=== PATIENT | male | born 1970 | race Two or more races ===

== ENCOUNTER 2016-10-16 09:25 | Inpatient (IN) | payer BC ==
[~2016-10-16] VITALS: Ht 188 cm; Wt 169.7 kg
[2016-10-16 10:30] LABS: Basophils # (auto) 0.1 uL; Basophils % (auto) 0.6 % (0.0-2.0); Eosinophils # (auto) 0 uL; Eosinophils % (auto) 0.2 % (0.0-7.0); Hematocrit 49.5 % (41.0-53.0); Hemoglobin 16.7 g/dL (13.5-17.5); Lymphocytes # (auto) 1.4 uL; Lymphocytes % (auto) 14.5 % (10.0-50.0); Mean Corpuscular Hemoglobin 29.6 pg (28.0-32.0); Mean Corpuscular Hgb Conc. 33.7 g/dL (32.0-36.0); Mean Corpuscular Volume 87.8 fL (80.0-100.0); Monocytes # (auto) 0.5 uL; Monocytes % (auto) 4.9 % (0.0-12.0); Neutrophils # (auto) 7.8 uL; Neutrophils % (auto) 79.8 % (37.0-80.0); Platelet Count (auto) 258 10^3/uL (140-450); Red Cell Distribution Width 14.6 % (11.6-16.0); White Blood Cell 9.8 10^3/uL (4.4-10.8)
[2016-10-16 11:00] LABS: Albumin 3.7 g/dL (3.4-5.0); Alkaline Phosphatase 112 U/L (45-117); Anion Gap 8 (5-15); Aspartate Aminotransferase 40 U/L (15-37); BUN/Creatinine Ratio 12.5; Bilirubin, Total 0.8 mg/dL (0.2-1.0); Blood Urea Nitrogen 12 mg/dL (7-18); Calcium 9.1 mg/dL (8.5-10.1); Carbon Dioxide 25 mmol/L (21-32); Chloride 104 mmol/L (98-107); GFR African American 108 mL/min; GFR Non-African American 89 mL/min; Glucose 153 mg/dL (74-106); Magnesium 2.3 mg/dL (1.6-2.6); Potassium 4.1 mmol/L (3.5-5.1); Sodium 137 mmol/L (136-145); Total Protein 8.1 g/dL (6.4-8.2)
[2016-10-16] MEDS ORDERED: DEXTROSE (50%) 50ML SYRG IV PRN (16:45)
[2016-10-16] MEDS ORDERED: MORPHINE SULF INJ 2 MG/ML SYRINGE 1ML IV PRN ×2 (16:45)
[2016-10-16] MEDS ORDERED: TEMAZEPAM 15 MG CAP PO PRN (16:45)
[2016-10-16] MEDS ORDERED: LORazepam 0.5 MG TAB PO PRN (16:45)
[2016-10-16] MEDS ORDERED: PROMETHAZINE HCL 25 MG/ML 1ML IV PRN (16:45)
[2016-10-16] MEDS ORDERED: HYDROcodone-ACET 5/325MG TAB PO PRN (16:45)
[2016-10-16] MEDS ORDERED: ACETAMINOPHEN 500 MG TAB PO PRN (16:45)
[2016-10-16] MEDS ORDERED: NITROGLYCERIN 0.4 MG SL TAB SL PRN (16:45)
[2016-10-16] MEDS: ASPirin 81 mg TAB PO SCH (17:23)
[2016-10-16] MEDS: CARVEDILOL 3.125 MG TAB PO SCH ×2 (17:23→22:30)
[2016-10-16] MEDS: ACCU-CHEK COMFORT CURVE STRIP VI SCH ×2 (17:29→22:26)
[2016-10-16] MEDS: InsuLIN REG 1unit/0.01ml Soln (100units/ml) SC SCH ×2 (17:30→22:30)
[2016-10-16 19:50] VITALS: BP 132/79
[2016-10-16 22:00] VITALS: BP 132/79
[2016-10-16] MEDS: SODIUM CHLOR 0.9% PF (SALINE LOCK) 10ML VIAL IV SCH (22:26)
[2016-10-17] MEDS ORDERED: BENA20TA14 PO (02:57)
[2016-10-17] MEDS ORDERED: METF-370 PO (02:57)
[2016-10-17] MEDS ORDERED: PANT40TA2 PO (02:57)
[2016-10-17] MEDS ORDERED: SERT-274 PO (02:57)
[2016-10-17] MEDS ORDERED: ASPI81CH43 GT (02:57)
[2016-10-17 05:00] VITALS: BP 135/78
[2016-10-17] MEDS: ACCU-CHEK COMFORT CURVE STRIP VI SCH ×4 (06:23→21:33)
[2016-10-17] MEDS: InsuLIN REG 1unit/0.01ml Soln (100units/ml) SC SCH ×4 (06:23→21:40)
[2016-10-17] MEDS: SODIUM CHLOR 0.9% PF (SALINE LOCK) 10ML VIAL IV SCH ×3 (06:23→21:33)
[2016-10-17 06:27] LABS: Hepatitis B Surface Antibody Negative
[2016-10-17 06:29] LABS: B-Type Natriuretic Peptide 4.19 pg/mL (0-100)
[2016-10-17 06:34] LABS: Albumin 3.4 g/dL (3.4-5.0); BUN/Creatinine Ratio 14.9; Bilirubin, Total 0.8 mg/dL (0.2-1.0); Calcium 8.6 mg/dL (8.5-10.1); Potassium 4.2 mmol/L (3.5-5.1); Total Protein 7.4 g/dL (6.4-8.2)
[2016-10-17 06:38] LABS: Temperature: 23.3 C (20.0-25.0)
[2016-10-17 07:30] VITALS: BP 131/75
[2016-10-17 09:00] VITALS: BP 131/75
[2016-10-17] MEDS ORDERED: ENOXAPARIN SOD 40 MG/0.4 ML SYRINGE SC SCH (10:00)
[2016-10-17] MEDS: ENALAPRIL MALEATE 2.5 MG TAB PO SCH (10:05)
[2016-10-17] MEDS: PANTOPRAZOLE 40 MG TAB PO SCH (10:06)
[2016-10-17] MEDS: CARVEDILOL 3.125 MG TAB PO SCH ×2 (10:06→21:33)
[2016-10-17] MEDS: POTASSIUM CHL 20 Meq TABLET PO SCH (10:06)
[2016-10-17] MEDS: ASPirin 81 mg TAB PO SCH (10:06)
[2016-10-17] MEDS: ISOSORBIDE MONONITRATE 60 MG TAB PO SCH (10:07)
[2016-10-17] MEDS: FUROSEMIDE 40 MG/4 ML VIAL IV SCH (10:07)
[2016-10-17 13:00] VITALS: BP 125/78
[2016-10-17 17:00] VITALS: BP 130/71
[2016-10-17 22:00] VITALS: BP 135/64
[2016-10-17] MEDS ORDERED: ATORVASTATIN 20 MG TAB PO SCH (22:00)
[2016-10-18 05:00] VITALS: BP 128/79
[2016-10-18] MEDS: SODIUM CHLOR 0.9% PF (SALINE LOCK) 10ML VIAL IV SCH (05:17)
[2016-10-18] MEDS: ACCU-CHEK COMFORT CURVE STRIP VI SCH ×2 (05:17→11:30)
[2016-10-18] MEDS: InsuLIN REG 1unit/0.01ml Soln (100units/ml) SC SCH ×2 (05:18→11:30)
[2016-10-18 07:30] VITALS: BP 121/76
[2016-10-18 08:13] LABS: Albumin 3.7 g/dL (3.4-5.0); BUN/Creatinine Ratio 14.6; Potassium 4.1 mmol/L (3.5-5.1); Total Protein 7.8 g/dL (6.4-8.2)
[2016-10-18 09:07] VITALS: BP 121/76
[2016-10-18] MEDS: FUROSEMIDE 40 MG/4 ML VIAL IV SCH (09:42)
[2016-10-18] MEDS: ASPirin 81 mg TAB PO SCH (09:43)
[2016-10-18] MEDS: PANTOPRAZOLE 40 MG TAB PO SCH (09:43)
[2016-10-18] MEDS: POTASSIUM CHL 20 Meq TABLET PO SCH (09:43)
[2016-10-18] MEDS: ENALAPRIL MALEATE 2.5 MG TAB PO SCH (09:43)
[2016-10-18] MEDS: CARVEDILOL 3.125 MG TAB PO SCH (09:43)
[2016-10-18] MEDS: ISOSORBIDE MONONITRATE 60 MG TAB PO SCH (09:44)
[2016-10-18 10:58] VITALS: BP 121/76
== END 2016-10-18 12:10 | disposition home or self-care (01) | DRG 292 ==
LOC: ER 09:35 → TELE 09:36 → TELE-CENTR 20:30
PROVIDERS: ADMIT Internal Medicine; ATTEND Internal Medicine
DX: I11.0 Hypertensive heart disease with heart failure (principal); Z68.42 Body mass index [BMI] 45.0-49.9, adult; I50.33 Acute on chronic diastolic (congestive) heart failure; I20.0 Unstable angina; E66.01 Morbid (severe) obesity due to excess calories; K76.0 Fatty (change of) liver, not elsewhere classified; K21.9 Gastro-esophageal reflux disease without esophagitis; I15.2 Hypertension secondary to endocrine disorders; E11.9 Type 2 diabetes mellitus without complications; Z83.3 Family history of diabetes mellitus; Z82.49 Family history of ischemic heart disease and other diseases of the circulatory system; Z90.49 Acquired absence of other specified parts of digestive tract; Z91.013 Allergy to seafood; Z71.89 Other specified counseling
CPT/HCPCS: 36415; 71020; 76705; 80053; 80061; 80307; 82550; 82962; 83036; 83735; 83880; 84443; 84484; 85025; 85379; 85652; 86141; 86704; 86706; 86708; 86803; 87340; 93005; 93306; J1815